=== PATIENT | male | born 1975 | race Two or more races ===

== ENCOUNTER 2019-03-03 09:02 | Day surgery (SDC) | payer OTHER ==
[2019-03-03] MEDS: SOD CHLORIDE 0.9% 1,000 ML IV ×2 (10:18→13:19)
[2019-03-03] MEDS: FENTAnyl 50 MCG/ML VIAL (11:00)
[2019-03-03] MEDS: LIDOCAINE 1% (MPF) 5 ML VIAL (11:00)
[2019-03-03] MEDS: GELATIN 12MM X 7 MM SPONGE (11:00)
[2019-03-03] MEDS: MIDAZOLAM 1 MG/ML 2 ML INJ (11:00)
== END 2019-03-03 15:40 | disposition home or self-care (01) ==
LOC: SDS 09:02
DX: I12.9 Hypertensive chronic kidney disease with stage 1 through stage 4 chronic kidney disease, or unspecified chronic kidney disease (principal); N18.9 Chronic kidney disease, unspecified
CPT/HCPCS: 50200; 77012